=== PATIENT | male | born 1995 | race Caucasian/White ===

== ENCOUNTER 2017-02-28 11:12 | Emergency (ER) | payer OTHER ==
[2017-02-28 11:30] VITALS: BP 122/54; PULSE 47; TEMP 97.6; BMI 25.0
[2017-02-28] MEDS ORDERED: IBUPROFEN 600 MG TABLET (FP) PO ONE ×2 (11:55→12:13)
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
== END 2017-02-28 12:47 | disposition home or self-care (01) ==
LOC: JERFT 11:12
PROC: 2W3RX1Z Immobilization of Left Lower Leg using Splint (ICD-10-PCS; principal; 2017-02-28)
DX: S83.402A Sprain of unspecified collateral ligament of left knee, initial encounter (principal); Y35.891A Legal intervention involving other specified means, law enforcement official injured, initial encounter; X58.XXXA Exposure to other specified factors, initial encounter; Y93.89 Activity, other specified; Y92.410 Unspecified street and highway as the place of occurrence of the external cause
CPT/HCPCS: 73562-TC-LT; 99282-25

== ENCOUNTER 2017-06-09 01:51 | Emergency (ER) | payer BC, OTHER ==
[2017-06-09 02:05] VITALS: BP 136/75; PULSE 88; TEMP 97.1; BMI 25.0
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
--- NOTE | 2017-06-09 03:48 | PDOC ---
*Physical Exam - Vital Signs Last Vital Signs Temp Pulse Resp BP Pulse Ox 97.1 F L 88 18 136/75 99 06/09/17 02:03 06/09/17 02:03 06/09/17 02:03 06/09/17 02:03 06/09/17 02:03 Medical Decision Making - Medical Decision Making 06/09/17 03:45 22y M presenting with upper lip lac pt notes it was from a fall on a stair, however pt has no other notable injuries and is accompnaied by his brother who has a laceration to his 5th metacarpal pts lac curvilinar approx 1cm does not cross the [place] and does not seem to involve any musculature lac closed by SILVESTRE Ewing *DC/Admit/Observation/Transfer Diagnosis at time of Disposition: Laceration - Discharge Dispostion Disposition: HOME Condition at time of disposition: Stable - Referrals - Patient Instructions Printed Discharge Instructions: DI for Laceration Repair -- Simple Additional Instructions: Put ice or a cold pack over your lip for 10 to 20 minutes at a time. Put a thin cloth between the ice and the lip. Eat soft foods that are easy to chew. Avoid foods that might sting. These include salty or spicy foods, citrus fruits or juices, and tomatoes. Do not use a straw until your lip is healed. After the first 24 to 48 hours, wash around the cut with clean water 2 times a day. Don't use hydrogen peroxide or alcohol, which can slow healing.R Return to fast track or your primary care doctor for suture removal in 5 days. If you experience any redness, swelling, streaking, warmth, to the site of the cut, or develop fever, nausea, vomiting, or diarrhea, please return to the ER. - Post Discharge Activity
== END 2017-06-09 03:48 | disposition home or self-care (01) ==
LOC: JER 01:51
PROC: 0CQ00ZZ Repair Upper Lip, Open Approach (ICD-10-PCS; principal; 2017-06-09)
DX: S01.511A Laceration without foreign body of lip, initial encounter (principal); W10.8XXA Fall (on) (from) other stairs and steps, initial encounter; Y93.89 Activity, other specified; Y99.8 Other external cause status; Y93.F2 Activity, caregiving, lifting
CPT/HCPCS: 99282-25

== ENCOUNTER 2024-08-05 06:42 | Day surgery (SDC) | payer BC ==
[2024-07-30 14:30] VITALS: BMI 29.6
[2024-08-05 10:54] VITALS: TEMP 98.2
[2024-08-05 12:00] VITALS: BP 100/66; PULSE 55; RESP 14
== END 2024-08-05 11:40 | disposition home or self-care (01) ==
LOC: JASU-ENDO 06:42
PROVIDERS: ATTEND Internal Medicine Gastroenterology
PROC: 0DBE8ZX Excision of Large Intestine, Via Natural or Artificial Opening Endoscopic, Diagnostic (ICD-10-PCS; principal; 2024-08-05 10:00)
DX: R19.7 Diarrhea, unspecified (principal); K64.8 Other hemorrhoids
CPT/HCPCS: 88305-TC

== ENCOUNTER 2024-08-12 06:45 | Day surgery (SDC) | payer BC ==
[2024-07-31 14:32] VITALS: BMI 29.6
[2024-08-12] MEDS ORDERED: MIDAZOLAM HCL 2 MG/2 ML SINGLE DOSE VIAL ONE (09:45)
[2024-08-12 10:28] VITALS: TEMP 98
[2024-08-12 11:01] VITALS: BP 109/53; PULSE 63; RESP 17
== END 2024-08-12 11:00 | disposition home or self-care (01) ==
LOC: JASU-ENDO 06:45
PROVIDERS: ATTEND Internal Medicine Gastroenterology
PROC: 0DB78ZX Excision of Stomach, Pylorus, Via Natural or Artificial Opening Endoscopic, Diagnostic (ICD-10-PCS; 2024-08-12)
PROC: 0DB68ZX Excision of Stomach, Via Natural or Artificial Opening Endoscopic, Diagnostic (ICD-10-PCS; 2024-08-12)
PROC: 0DB98ZX Excision of Duodenum, Via Natural or Artificial Opening Endoscopic, Diagnostic (ICD-10-PCS; principal; 2024-08-12 10:15)
DX: K29.50 Unspecified chronic gastritis without bleeding (principal); K44.9 Diaphragmatic hernia without obstruction or gangrene
CPT/HCPCS: 88305-TC; 88342-TC